=== PATIENT | female | born 1965 | race Caucasian/White ===

== ENCOUNTER → 2024-11-11 09:00 | Outpatient (REF) | payer MEDICARE, SELFPAY | LOC: DHSLP 09:00 | PROVIDERS: ATTENDING PHYSICIAN Internal Medicine Critical Care Medicine; FAMILY PHYSICIAN Family Medicine | DX: G47.33 Obstructive sleep apnea (adult) (pediatric) (principal) | CPT/HCPCS: 95810 ==